=== PATIENT | female | born 2000 | race Caucasian/White ===

== ENCOUNTER 2024-11-11 07:42 | Inpatient (IN) ==
[2024-11-11] MEDS ORDERED: LIDOCAINE 1% LOCAL 20 ML VIAL INFIL PRN (08:21)
[2024-11-11] MEDS ORDERED: OXYTOCIN 30 UNITS/NSS 30 UNITS/500 ML BAG IV PRN (08:21)
[2024-11-11] MEDS: LACTATED RINGER'S 1,000 ML IV PRN (08:51)
[2024-11-11 08:56] LABS: Hematocrit (blood only) 38.3 % (37.0-47.0); Hemoglobin 12.6 g/dl (12.0-16.0); Mean Corpuscular Hemoglobin 26.6 pg (25.0-34.0); Mean Corpuscular Volume 80.8 fL (80.0-100.0); Platelet Count 200 K/uL (130-400); RDW Standard Deviation 39.1 fL (36.4-46.3); Red Blood Count 4.74 M/uL (4.20-5.40); White Blood Count 9.64 K/ul (4.8-10.8)
[2024-11-11] MEDS: OXYTOCIN 30 UNITS/NSS 30 UNITS/500 ML BAG IV PRN (08:57)
--- NOTE | 2024-11-11 09:01 | History & Physical Report ---
Date of Service November 11, 2024 Assessment & Plan (1) Normal labor: Plan: Pt is a 24yo at 40w4d with hx of GDM presenting for induction of labor Routine labs ordered Pitocin ordered Epidural placement ordered Monitor tracing Expectant managment for labor Admission and Anticipated Discharge Date Admission Date: November 11, 2024 History of Present Illness Primary Care Provider: Silvano Chowdary DO Rosina is a 24y/o female currently at 40w4d with an HECTOR 11/07/24 who is here for induction of labor. Her is complicated by GDM. Currently not experiencing contractions; adequate movement; no fluid loss; no bloody show External FHT and external uterine monitors used; Category 1 tracing; FHT 130bpm with moderate variability, accelerations present, decelerations absent Had regular appointments with OB. Labs Lab Results OB Labs: Blood Type O Positive 04/08/24 Antibody Screen NEGATIVE 04/08/24 Hgb 11.3 g/dl (12.0-16.0) L 08/21/24 Hct 33.5 % (37.0-47.0) L 08/21/24 MCV 79.8 fL (80.0-100.0) L 04/08/24 Plt Count 298 K/uL (130-400) 04/08/24 VZV IgG Antibody 1.74 S/CO 06/09/24 Rubella IgG Antibody Immune (Immune) 04/08/24 Treponema pallidum Ab Negative (Negative) 08/21/24 Hep Bs Antigen Negative (Negative) 04/08/24 Hepatitis C Antibody Negative (Negative) 04/08/24 Hepatitis C Ab (EIA) NON-REACTIVE (NON-REACTIVE) 08/15/22 HIV 1&2 Ab/P24 Ag 4thGn Negative (Negative) 04/08/24 Glucose 1 Hr 50 gm 154 mg/dl (70-130) H 05/26/24 OB Optional Labs: Chlamydia trachomatis RNA Not Detected (NotDetected) 04/08/24 Neisseria gonorrhoeae RNA Not Detected (NotDetected) 04/08/24 Hb: 12.6 today Hct: 38.3 today Plt count: 200 today GBS: Negative Other screens: cff-DNA: declined Cystic Fibrosis: negative SMA: negative Review of Systems : Denies fever, chills, sweats Denies shortness of breath, difficulty breathing, chest pain, palpitations, chest pressure. Denies breast pain. Denies dysuria. Denies headache or changes in vision. Allergies Allergy/AdvReac Type Severity Reaction Status Date / Time No Known Allergies Allergy Verified 11/11/24 09:08 Home Medications Medication Instructions Recorded Confirmed Type vits no.124-ferrous fum 1 tab PO DAILY 11/11/24 11/11/24 History 27 mg iron-folic acid 800 mcg tablet ( Vitamin) Patient History Medical History No pertinent past medical history Surgical History No pertinent past surgical history Family History Grandmother (Maternal) Cancer Father Diabetes Family/Other Muscular dystrophy Denies family history of Breast cancer Colorectal cancer Social History Smoking Status: Never smoker Second Hand Exposure: No; Do You Dip or Chew Tobacco: No; Hx Alcohol Use: Yes Hx Substance Use: No Beliefs That Will Affect Care: None marital status: marital status details: breezy Abbott (24) [phone] Current Living Situation: Spouse Current Living Situation Comment: lives with ihsan tijerina current occupational status: employed current occupation: [employer] Other Information That Helps Us Care for You: No Feels Safe at Home: Yes Safety Concerns: Feels Safe At This Time Assistive Devices: None Physical Exam Physical Exam: General: patient resting comfortably, NAD, non-toxic in appearance, AAOx4, answers questions appropriately. Skin: warm, dry, intact Heart: S1/S2 heard, regular, no m/r/g Lungs: equal air entry bilaterally, no rales/rhonchi/wheezes Abd: Normoactive BS, soft, NT/ND, gravid uterus Ext: warm, no clubbing/cyanosis or edema Neuro: nonfocal, speech intact, no facial droop, moving all extremities on command : FHR baseline 130, moderate variability, accelerations present, decelerations absent, rare contractions Results & Data Vital Signs (Past 12 Hours) Vital Signs Temp Pulse Resp BP 11/11/24 07:56 36.8 C 18 11/11/24 07:54 120 H 129/84 Supervising Physician Co-Signing Physician Notes Resident Physician Supervision Note: I interviewed and examined the patient. Discussed with Dr. Lott and agree with findings and plan as documented in the note. Any exceptions or clarifications are listed here: [ ] Documented By: Yesika Terry MD, FACOG Resident Activity Tracking Resident Involvement: Resident Care Provided Care Provided: OB Delivery
[2024-11-11] MEDS ORDERED: diphenhydrAMINE 50 MG/ML VIAL IV PRN (13:11)
[2024-11-11] MEDS ORDERED: NALOXONE HCL 0.4 MG/1 ML VIAL/CARP IV PRN (13:11)
[2024-11-11] MEDS ORDERED: ROPIVACAINE 0.5% PF 5 MG/ML 20 ML VIAL EPI PRN (13:11)
[2024-11-11] MEDS ORDERED: NALBUPHINE HCL INJ 10 MG/ML AMP IV PRN (13:11)
[2024-11-11] MEDS ORDERED: ONDANSETRON INJ 2 MG/ML 2 ML VIAL IV PRN (13:11)
[2024-11-11] MEDS ORDERED: NALOXONE HCL 1 MG in SODIUM CHLORIDE 0.9% 1,000 ML IV PRN (13:11)
[2024-11-11] MEDS ORDERED: SODIUM CHLORIDE 0.9% PF INJ 10 ML VIAL EPI PRN (13:11)
[2024-11-11] MEDS ORDERED: LIDOCAINE 2% MPF LOCAL 5 ML VIAL EPI PRN (13:11)
[2024-11-11] MEDS ORDERED: BUPIVACAINE 0.25% PF 30 ML VIAL EPI PRN (13:11)
--- NOTE | 2024-11-11 13:11 | Anesthesiology Consultation ---
Date of Service November 11, 2024 Assessment & Plan ASA ASA2 Proposed Anesthesia Anesthesia Type: Labor Epidural Risk / Benefits Reviewed With: PT / POA / Parent / Guardian, Accepts Plan and Informed Consent Obtained History Height/Weight Height: 5 ft 5 in Weight: 90.718 kg Allergies Allergy/AdvReac Type Severity Reaction Status Date / Time No Known Allergies Allergy Verified 11/11/24 09:08 Medications Home Medications Medication Instructions Recorded Confirmed Last Taken vits no.124-ferrous fum 1 tab PO DAILY 11/11/24 11/11/24 Unknown 27 mg iron-folic acid 800 mcg tablet ( Vitamin) Active Medications Generic Name Dose Route Start Last Admin Trade Name Freq PRN Reason Stop Dose Admin Oxytocin 30 units in 500 mls @ 4 mls/hr 11/11/24 08:21 11/11/24 14:23 Pitocin 30 Units/Nss IV 11/13/24 08:20 0.24 units/hr .Q24H PRN 4 mls/hr Labor Induction/Augmentation Titration Protocol 0.24 UNITS/HR Lactated Ringer's 1,000 mls @ 125 mls/hr 11/11/24 08:21 11/11/24 14:07 Lr IV 11/13/24 08:20 125 mls/hr .Q8H PRN Infusion L&D Protocol Protocol Past Medical History Medical History No pertinent past medical history Exercise / Class Metabolic Activity II 4-5 Yardwork/Stairs/Walk up hill Past Family History Family History Grandmother (Maternal) Cancer Father Diabetes Family/Other Muscular dystrophy Denies family history of Breast cancer Colorectal cancer Past Surgical History Surgical History No pertinent past surgical history Past Anesthesia History No Hx of Anesthesia Complications and No Family Hx of Anesthesia Complications History of PONV No Hx of PONV and No Hx of Motion Sickness Social History Smoking Status: Never smoker Do You Dip or Chew Tobacco: No Hx Alcohol Use: Yes Hx Substance Use: No substance use type: does not use Review of Systems denies fever/cough/ colds/ chest pain/ SOB/ JAIDA denies JAIDA Physical Exam Vital Signs Last Vital Signs Temp 36.7 C 11/11/24 11:49 Pulse 65 11/11/24 14:57 Resp 18 11/11/24 11:49 BP 125/62 11/11/24 14:54 Pulse Ox 99 11/11/24 14:57 ENMT Mouth: no TMJ abnormality and no dentition abnormality Thyromental Distance: > or= 3.5 Finger Breadths Mallampati Class: II Neck neck extension not limited Respiratory normal respiratory effort; no respiratory distress Auscultation: lungs clear to auscultation bilaterally Cardiovascular Rate/Rhythm: regular rate and regular rhythm Neurologic moves all extremities Psychiatric Orientation: alert and oriented x 3 Testing Laboratory Results 11/11/24 08:35 11/11/24 10:04 POC Glucose 91
[2024-11-11] MEDS: fentANYL 2 MCG/ML BUPIVacaine 0.125%-NSS 100ML BAG ONE (13:58)
[2024-11-11] MEDS: LIDOCAINE 2%/EPINEPHRINE 1:200,000 20 ML PF ONE (14:04)
[2024-11-11] MEDS: BUPIVACAINE 0.25% PF 30 ML VIAL ONE (14:04)
[2024-11-11] MEDS: SODIUM CHLORIDE 0.9% PF INJ 10 ML VIAL ONE (14:25)
[2024-11-11] MEDS: BUPIVACAINE 0.25% PF 30 ML VIAL EPI STA (14:25)
[2024-11-11] MEDS: LIDOCAINE 2%/EPINEPHRINE 1:200,000 20 ML PF EPI STA (14:25)
[2024-11-11] MEDS: SODIUM CHLORIDE 0.9% PF INJ 10 ML VIAL EPI STA (14:26)
[2024-11-11] MEDS ORDERED: Nursing to Pharmacy Communication SCH (19:00)
[2024-11-11] MEDS: fentANYL 2 MCG/ML BUPIVacaine 0.125%-NSS 100ML BAG EPI PRN (19:24)
--- NOTE | 2024-11-12 01:16 | Labor Progress Brief Note ---
Date of Service November 12, 2024 Subjective Comfortable with epidural, beginning to c/o nausea, emesis x1 just now. Assessment & Plan (1) Encounter for induction of labor: Plan: Continue pit, epidural. Admission and Anticipated Discharge Date Admission Date: November 11, 2024 Physical Exam Genitourinary: 9/100/0 LOF clear FHT 150 mod aletha +acc -dec Recent brief interval of 165 mod aletha -acc +early, but this resolved with maternal reposition. [place] Q3m Results & Data Vital Signs (Past 12 Hours) Vital Signs Temp Pulse Resp BP Pulse Ox 11/12/24 01:10 76 135/78 11/12/24 01:07 78 98 11/12/24 01:02 83 98 11/12/24 00:57 109 H 100 11/12/24 00:55 77 136/82 11/12/24 00:52 68 98 11/12/24 00:47 65 96 11/12/24 00:42 67 96 11/12/24 00:39 69 131/77 11/12/24 00:38 15 11/12/24 00:38 99.0 F 15 11/12/24 00:37 70 99 11/12/24 00:32 67 99 11/12/24 00:27 67 99 11/12/24 00:25 69 126/70 11/12/24 00:22 70 98 11/12/24 00:17 67 96 11/12/24 00:12 66 97 11/12/24 00:09 71 129/64 11/12/24 00:07 69 99 11/12/24 00:02 70 100 11/11/24 23:57 99 11/11/24 23:57 71 11/11/24 23:54 69 11/11/24 23:54 113/65 11/11/24 23:52 97 11/11/24 23:52 68 11/11/24 23:47 97 11/11/24 23:47 69 11/11/24 23:42 98 11/11/24 23:42 71 11/11/24 23:39 67 11/11/24 23:39 118/67 11/11/24 23:37 97 11/11/24 23:37 73 11/11/24 23:32 97 11/11/24 23:32 65 11/11/24 23:27 97 11/11/24 23:27 65 11/11/24 23:25 70 11/11/24 23:25 118/67 11/11/24 23:22 97 11/11/24 23:22 69 11/11/24 23:17 96 11/11/24 23:17 64 11/11/24 23:12 97 11/11/24 23:12 70 11/11/24 23:10 70 11/11/24 23:10 118/68 11/11/24 23:07 96 11/11/24 23:07 66 11/11/24 23:02 96 11/11/24 23:02 70 11/11/24 22:57 96 11/11/24 22:57 73 11/11/24 22:55 67 11/11/24 22:55 122/66 11/11/24 22:52 97 11/11/24 22:52 74 11/11/24 22:47 96 11/11/24 22:47 68 11/11/24 22:45 16 11/11/24 22:45 97.7 F 16 11/11/24 22:42 97 11/11/24 22:42 85 11/11/24 22:39 76 11/11/24 22:39 130/77 11/11/24 22:37 99 11/11/24 22:37 77 11/11/24 22:32 98 11/11/24 22:32 84 11/11/24 22:27 97 11/11/24 22:27 78 11/11/24 22:24 82 11/11/24 22:24 125/76 11/11/24 22:22 95 11/11/24 22:22 79 11/11/24 22:17 97 11/11/24 22:17 79 11/11/24 22:12 97 11/11/24 22:12 77 11/11/24 22:10 75 11/11/24 22:10 132/80 11/11/24 22:07 96 11/11/24 22:07 80 11/11/24 22:02 97 11/11/24 22:02 77 11/11/24 21:57 97 11/11/24 21:57 77 11/11/24 21:54 76 11/11/24 21:54 128/82 11/11/24 21:52 97 11/11/24 21:52 74 11/11/24 21:47 97 11/11/24 21:47 74 11/11/24 21:42 99 11/11/24 21:42 73 11/11/24 21:40 67 11/11/24 21:40 140/84 11/11/24 21:37 99 11/11/24 21:37 67 11/11/24 21:32 99 11/11/24 21:32 68 11/11/24 21:27 99 11/11/24 21:27 76 11/11/24 21:24 75 11/11/24 21:24 142/84 H 11/11/24 21:22 100 11/11/24 21:22 74 11/11/24 21:17 100 11/11/24 21:17 82 11/11/24 21:12 100 11/11/24 21:12 81 11/11/24 21:09 81 11/11/24 21:09 135/78 11/11/24 21:07 100 11/11/24 21:07 81 11/11/24 21:02 92 11/11/24 21:02 97 H 11/11/24 21:00 16 11/11/24 21:00 98.2 F 16 11/11/24 20:57 100 11/11/24 20:57 81 11/11/24 20:54 77 11/11/24 20:54 141/84 H 11/11/24 20:52 100 11/11/24 20:52 79 11/11/24 20:47 99 11/11/24 20:47 73 11/11/24 20:42 100 11/11/24 20:42 79 11/11/24 20:40 75 11/11/24 20:40 134/76 11/11/24 20:37 99 11/11/24 20:37 77 11/11/24 20:33 92 11/11/24 20:33 80 11/11/24 20:32 99 11/11/24 20:32 71 11/11/24 20:27 99 11/11/24 20:27 71 11/11/24 20:24 69 11/11/24 20:24 132/82 11/11/24 20:22 99 11/11/24 20:22 69 11/11/24 20:17 97 11/11/24 20:17 68 11/11/24 20:12 99 11/11/24 20:12 69 11/11/24 20:08 70 11/11/24 20:08 124/76 11/11/24 20:07 100 11/11/24 20:07 71 11/11/24 20:02 99 11/11/24 20:02 71 11/11/24 19:57 99 11/11/24 19:57 68 11/11/24 19:54 70 11/11/24 19:54 125/75 11/11/24 19:52 100 11/11/24 19:52 73 11/11/24 19:47 99 11/11/24 19:47 70 11/11/24 19:42 99 11/11/24 19:42 72 11/11/24 19:39 67 11/11/24 19:39 134/79 11/11/24 19:37 98 11/11/24 19:37 71 11/11/24 19:32 100 11/11/24 19:32 65 11/11/24 19:27 100 11/11/24 19:27 69 11/11/24 19:25 66 11/11/24 19:25 124/76 11/11/24 19:22 100 11/11/24 19:22 71 11/11/24 19:17 100 11/11/24 19:17 66 11/11/24 19:12 100 11/11/24 19:12 69 11/11/24 19:10 16 11/11/24 19:10 98.6 F 16 11/11/24 19:09 71 11/11/24 19:09 126/82 11/11/24 19:07 99 11/11/24 19:07 70 11/11/24 19:02 98 11/11/24 19:02 73 11/11/24 18:57 100 11/11/24 18:57 66 11/11/24 18:55 64 11/11/24 18:55 109/65 11/11/24 18:52 99 11/11/24 18:52 68 11/11/24 18:47 99 11/11/24 18:47 63 11/11/24 18:42 99 11/11/24 18:42 66 11/11/24 18:39 66 11/11/24 18:39 114/69 11/11/24 18:37 100 11/11/24 18:37 64 11/11/24 18:32 99 11/11/24 18:32 66 11/11/24 18:27 100 11/11/24 18:27 67 11/11/24 18:24 66 11/11/24 18:24 123/74 11/11/24 18:22 100 11/11/24 18:22 67 11/11/24 18:17 99 11/11/24 18:17 62 11/11/24 18:12 98 11/11/24 18:12 65 11/11/24 18:09 65 11/11/24 18:09 118/68 11/11/24 18:07 100 11/11/24 18:07 68 11/11/24 18:02 97 11/11/24 18:02 78 11/11/24 17:57 97 11/11/24 17:57 71 11/11/24 17:54 68 11/11/24 17:54 130/81 11/11/24 17:52 98 11/11/24 17:52 68 11/11/24 17:47 98 11/11/24 17:47 77 11/11/24 17:42 98 11/11/24 17:42 73 11/11/24 17:39 73 11/11/24 17:39 127/77 11/11/24 17:37 97 11/11/24 17:37 71 11/11/24 17:32 99 11/11/24 17:32 71 11/11/24 17:27 100 11/11/24 17:27 71 11/11/24 17:24 72 11/11/24 17:24 130/83 11/11/24 17:22 99 11/11/24 17:22 70 11/11/24 17:17 100 11/11/24 17:17 70 11/11/24 17:12 98 11/11/24 17:12 71 11/11/24 17:09 65 11/11/24 17:09 134/85 11/11/24 17:07 99 11/11/24 17:07 65 11/11/24 17:02 99 11/11/24 17:02 65 11/11/24 16:57 18 11/11/24 16:57 98.4 F 18 11/11/24 16:57 100 11/11/24 16:57 67 11/11/24 16:54 66 11/11/24 16:54 136/88 11/11/24 16:52 99 11/11/24 16:52 66 11/11/24 16:47 100 11/11/24 16:47 67 11/11/24 16:42 100 11/11/24 16:42 67 11/11/24 16:40 65 11/11/24 16:40 115/66 11/11/24 16:37 100 11/11/24 16:37 72 11/11/24 16:32 100 11/11/24 16:32 70 11/11/24 16:27 99 11/11/24 16:27 68 11/11/24 16:24 66 11/11/24 16:24 119/74 11/11/24 16:22 99 11/11/24 16:22 67 11/11/24 16:17 98 11/11/24 16:17 71 11/11/24 16:12 97 11/11/24 16:12 67 11/11/24 16:09 61 11/11/24 16:09 122/76 11/11/24 16:07 97 11/11/24 16:07 64 11/11/24 16:02 98 11/11/24 16:02 67 11/11/24 15:57 98 11/11/24 15:57 66 11/11/24 15:54 18 11/11/24 15:54 18 11/11/24 15:54 65 11/11/24 15:54 125/77 11/11/24 15:52 98 11/11/24 15:52 62 11/11/24 15:47 98 11/11/24 15:47 70 11/11/24 15:42 98 11/11/24 15:42 73 11/11/24 15:38 68 11/11/24 15:38 122/78 11/11/24 15:37 99 11/11/24 15:37 69 11/11/24 15:32 98 11/11/24 15:32 68 11/11/24 15:27 96 11/11/24 15:27 63 11/11/24 15:25 64 11/11/24 15:25 122/77 11/11/24 15:22 96 11/11/24 15:22 64 11/11/24 15:17 97 11/11/24 15:17 67 11/11/24 15:12 98 11/11/24 15:12 73 11/11/24 15:09 67 11/11/24 15:09 120/78 11/11/24 15:07 99 11/11/24 15:07 71 11/11/24 15:02 98 11/11/24 15:02 77 11/11/24 14:57 99 11/11/24 14:57 65 11/11/24 14:54 16 11/11/24 14:54 98.1 F 16 11/11/24 14:54 73 11/11/24 14:54 125/62 11/11/24 14:52 99 11/11/24 14:52 74 11/11/24 14:47 98 11/11/24 14:47 66 11/11/24 14:42 97 11/11/24 14:42 69 11/11/24 14:40 67 11/11/24 14:40 122/60 11/11/24 14:37 98 11/11/24 14:37 71 11/11/24 14:32 98 11/11/24 14:32 73 11/11/24 14:27 99 11/11/24 14:27 70 11/11/24 14:23 71 11/11/24 14:23 131/73 11/11/24 14:22 98 11/11/24 14:22 75 11/11/24 14:18 73 11/11/24 14:18 122/63 11/11/24 14:17 98 11/11/24 14:17 72 11/11/24 14:13 78 11/11/24 14:13 132/77 11/11/24 14:12 100 11/11/24 14:12 71 11/11/24 14:07 100 11/11/24 14:07 74 11/11/24 14:06 69 11/11/24 14:06 127/72 11/11/24 14:04 75 11/11/24 14:04 131/71 11/11/24 14:02 100 11/11/24 14:02 79 11/11/24 14:02 130/71 11/11/24 14:00 73 11/11/24 14:00 129/70 11/11/24 13:58 73 11/11/24 13:58 125/78 11/11/24 13:57 100 11/11/24 13:57 68 11/11/24 13:56 70 11/11/24 13:56 135/83 11/11/24 13:54 68 11/11/24 13:54 138/86 11/11/24 13:52 100 11/11/24 13:52 71 11/11/24 13:51 83 L 11/11/24 13:51 76 11/11/24 13:47 100 11/11/24 13:47 67 11/11/24 13:42 100 11/11/24 13:42 78 11/11/24 13:37 99 11/11/24 13:37 73 11/11/24 13:35 90 11/11/24 13:35 71 11/11/24 13:31 99 11/11/24 13:31 79 11/11/24 13:26 100 11/11/24 13:26 70 11/11/24 13:21 99 11/11/24 13:21 73 11/11/24 13:16 100 11/11/24 13:16 77 Coding Level of Care Code None Diagnoses Encounter for induction of labor Z34.90
[2024-11-12] MEDS ORDERED: ACETAMINOPHEN 325 MG TAB PO PRN (06:35)
[2024-11-12] MEDS ORDERED: HYDROCORTISONE ACETATE 25 MG SUPP PR PRN (06:35)
[2024-11-12] MEDS ORDERED: DIPHTHER/TETAN/PERTUS Vaccine (Tdap, Adol/Adult) 0.5mL IM ONE (06:35)
--- NOTE | 2024-11-12 06:38 | Delivery Summary ---
Vaginal Delivery Summary Date of Service November 12, 2024 Vaginal Delivery Summary DIAGNOSES: 1. Page intrauterine at 40w5d gestation. 2. Induction of Labor. 3. Group B Streptococcus Neg. 4. Gestational Diabetes 5: Shoulder dystocia PROCEDURE: Spontaneous vaginal delivery and repair of second degree laceration. SURGEON: Yesika Terry MD. HOT AIR FURNACE INSTALLER AND REPAIRER: None. ESTIMATED BLOOD LOSS: 138 mL. COMPLICATIONS: None. PLACENTA: Spontaneous and intact with a 3-vessel cord. DISPOSITION: Stable to labor and delivery. DESCRIPTION: The patient pushed well and brought the head to in DOA position. The infant's head was allowed to deliver with contraction force and no further active pushing, with the perineum protected during this time. There was no nuchal cord. The right shoulder was anterior. A shoulder dystocia was encountered and assistance was rallied. Maira position and suprapubic pressure were employed. On the first push this did not result in delivery of the shoulder. During a rest, I palpated the posterior shoulder/arm and these were not free enough to easily sweep/deliver. With the next contraction movement pressure was applied by my fingers upon the posterior aspect of the right/anterior shoulder, and slight rotational movement as well as descent of the shoulder was seen. The patient was then able to deliver the right shoulder with her next effort. Such a small amount of rotation was employed that the R shoulder remained anterior through the delivery process. The infant was placed on the maternal abdomen. It was vigorous and moving all extremities, and making respiratory efforts. The cord was doubly clamped by the MD and then cut by the FOB. The placenta delivered spontaneously and was noted to be intact and with a 3VC. The cervix, vagina and perineum were examined and were found to have a sec ond degree laceration that was repaired in the usual manner with vicryl suture including a crown stitch to rebuild the perineal body. The fundus was firm and lochia minimal immediately after delivery. [facility] Vaginal Delivery Charge Vaginal Delivery Codes: 47237 global code for the antepartum, delivery, and post-
[2024-11-12] MEDS: OXYTOCIN 30 UNITS/NSS 30 UNITS/500 ML BAG IV PRN (07:00)
[2024-11-12] MEDS: IBUPROFEN 600 MG TAB PO PRN (07:06)
--- NOTE | 2024-11-12 08:22 | Anesthesia Procedure Note ---
Date of Service November 12, 2024 Anesthesia Post Epidural Note Vital Signs Vital Signs: Temp Pulse Resp BP Pulse Ox 98.2 F 71 16 125/72 97 11/12/24 04:58 11/12/24 08:09 11/12/24 04:58 11/12/24 08:09 11/12/24 07:22 Pain Intensity Bilateral Back: Pain Intensity: 4 Notes Mental Status: alert / awake / arousable and participated in evaluation Nausea / Vomiting: adequately controlled Pain: adequately controlled Airway Patency, RR, SpO2: stable & adequate BP & HR: stable & adequate Hydration State: stable & adequate Neuraxial Anesthesia: was administered and sensory block is resolving Anesthetic Complications: no major complications apparent and Pt Satisfied with anesthetic care Epidural: Removed without complications and With tip intact
[2024-11-12] MEDS: PRENATAL VITAMIN 1 TAB PO SCH (08:46)
[2024-11-12] MEDS: DOCUSATE SODIUM 100 MG CAP PO SCH (08:46)
[2024-11-12] MEDS: BENZOCAINE 20% SPRY 85 APPLN/85 GM CAN EXT PRN (19:49)
--- NOTE | 2024-11-13 05:39 | Obstetrical Progress Note ---
Date of Service <Davon Lott MD - Last Filed: 11/13/24 07:12> November 13, 2024 Assessment & Plan <Davon Lott MD - Last Filed: 11/13/24 07:12> (1) care and examination: 24yo post- day 1 s/p Fells well today Continue post- care Encourage ambulation and Pain controlled with Ibuprofen Vital Signs and Hgb stable <Edith Jacobs MD - Last Filed: 11/13/24 07:41> (1) care and examination: Subjective <Davon Lott MD - Last Filed: 11/13/24 07:12> 24yo post- day 1 s/p Ambulation: Ambulating normally Voiding: No voiding problems Passing Gas:: Yes Diet Tolerance:: regular diet Lochia:: Small Feeding Type:: Current Pain Level: 0/10 controlled with Ibuprofen Resting comfortably this AM in NAD Denies JACKSON, CP, SOB, N/V/D, LE pain/swelling. Physical Exam <Davon Lott MD - Last Filed: 11/13/24 07:12> General: patient resting comfortably, NAD, non-toxic in appearance, answers questions appropriately Skin: warm, dry, intact Heart: S1/S2 heard, regular, no m/r/g Lungs: equal air entry bilaterally, no rales/rhonchi/wheezes Abd: Normoactive BS, soft, NT/ND, uterine fundus firm at umbilicus Ext: warm, no clubbing/cyanosis or edema, Maritza's neg Neuro: nonfocal, patient AAOx4, speech intact, no facial droop, moving all extremities on command Results & Data <Davon Lott MD - Last Filed: 11/13/24 07:12> Vital Signs (Past 12 Hours) Vital Signs Temp Pulse Resp BP Pulse Ox O2 Del Method 11/13/24 04:34 36.6 C 78 16 127/82 96 Room Air 11/13/24 00:00 36.9 C 96 H 18 131/79 95 Room Air 11/12/24 19:30 36.9 C 102 H 16 123/78 98 Room Air Supervising Physician <Edith Jacosb MD - Last Filed: 11/13/24 07:41> Co-Signing Physician Notes Resident Physician Supervision Note: I interviewed and examined the patient. Discussed with Dr. Lott and agree with findings and plan as documented in the note. Any exceptions or clarifications are listed here: PP1 s/p , doing well. VSS, exam benign and wnl. Continue routine care Documented By: Edith Jacobs MD Resident Activity Tracking <Davon Lott MD - Last Filed: 11/13/24 07:12> Resident Involvement: Resident Care Provided Care Provided: OB Delivery
[2024-11-13 08:56] LABS: Hematocrit (blood only) 35.1 % (37.0-47.0); Hemoglobin 11.8 g/dl (12.0-16.0); Mean Corpuscular Hemoglobin 27.5 pg (25.0-34.0); Mean Corpuscular Volume 81.8 fL (80.0-100.0); Platelet Count 162 K/uL (130-400); RDW Standard Deviation 40.8 fL (36.4-46.3); Red Blood Count 4.29 M/uL (4.20-5.40); White Blood Count 13.30 K/ul (4.8-10.8)
[2024-11-13 09:16] VITALS: BP 116/80; PULSE 69; RESP 18; TEMP 97.5; O2SAT 97
== END 2024-11-13 15:25 | disposition home or self-care (01) | DRG 807 ==
LOC: 4S1 07:42 → 4E2 11-12 09:38